=== PATIENT | male | born 1945 | race African-American/Black ===

== ENCOUNTER 2020-12-05 09:44 | Emergency (ER) | payer OTHER ==
[~2020-12-05] VITALS: Ht 182.9 cm; Wt 132.0 kg
[2020-12-05] MEDS ORDERED: LISINOPRIL-HCT1 EACH PO (10:00)
[2020-12-05 10:32] LABS: CALCIUM 9.9 mg/dL (8.5-10.1); CREATININE 1.3 mg/dL (0.6-1.3); POTASSIUM 3.5 mmol/L (3.5-5.1)
[2020-12-05 10:57] LABS: URINE BILIRUBIN NEGATIVE (Negative); URINE BLOOD 3+ (Negative); URINE CLARITY CLEAR; URINE COLOR YELLOW; URINE GLUCOSE-RANDOM NEGATIVE (Negative); URINE KETONES NEGATIVE (Negative); URINE LEUKOCYTES-REFLEX NEGATIVE (Negative); URINE NITRITE-REFLEX NEGATIVE (Negative); URINE PROTEIN TRACE (Negative); URINE UROBILINOGEN 0.2 E.U./dl (0.2-1.0)
[2020-12-05] MEDS ORDERED: LIPITOR 20 MG T20 M1 PO (10:57)
[2020-12-05] MEDS ORDERED: NORVASC5 MG PO (11:00)
[2020-12-05] MEDS ORDERED: CARVEDILOL12.5 MG PO (11:00)
[2020-12-05 11:03] LABS: CRYSTALS None Seen /LPF (None Seen); HYALINE CASTS 0-3 Few /LPF (None Seen); MUCUS 0-3 Light strn/LPF (None Seen); RBC CASTS 0-3 /LPF; SQUAMOUS 0-3 Few /LPF (0-3); URINE WBC-REFLEX 0-5 Rare /HPF (0-5); WBC CLUMPS Few (None Seen)
[2020-12-05] MEDS ORDERED: OLMESARTAN-HCT1 EAC1 PO (11:06)
[2020-12-05 12:14] VITALS: BP 142/94
== END 2020-12-05 12:15 | disposition home or self-care (01) ==
LOC: M.ERS 09:44
PROVIDERS: Emergency Medicine Emergency Medical Services
DX: R33.9 Retention of urine, unspecified (principal); I10 Essential (primary) hypertension; I25.2 Old myocardial infarction; Z79.899 Other long term (current) drug therapy

== ENCOUNTER 2020-12-11 06:53 | Emergency (ER) | payer OTHER ==
[~2020-12-11] VITALS: Ht 182.9 cm; Wt 118.4 kg
[~2020-12-11 06:53] MED LIST: CARVEDILOL12.5 MG PO; LIPITOR 20 MG T20 M1 PO; LISINOPRIL-HCT1 EACH PO; NORVASC5 MG PO; OLMESARTAN-HCT1 EAC1 PO
[2020-12-11 08:29] VITALS: BP 132/83
== END 2020-12-11 08:29 | disposition home or self-care (01) ==
LOC: M.ERS 06:53
DX: R33.9 Retention of urine, unspecified (principal); I10 Essential (primary) hypertension; I25.2 Old myocardial infarction; Z79.899 Other long term (current) drug therapy

== ENCOUNTER 2021-01-06 11:17 | Emergency (ER) | payer OTHER ==
[~2021-01-06] VITALS: Ht 182.9 cm; Wt 110.2 kg
[2021-01-06] MEDS ORDERED: FLOMAX0.4 MG PO (11:41)
[2021-01-06] MEDS ORDERED: TELMISARTAN-HC1 EAC2 PO (11:41)
[2021-01-06] MEDS ORDERED: PROSCAR 5MG TABL5 M1 PO (11:41)
[2021-01-06 12:52] LABS: URINE BILIRUBIN NEGATIVE (Negative); URINE BLOOD 3+ (Negative); URINE CLARITY CLEAR; URINE COLOR YELLOW; URINE GLUCOSE-RANDOM NEGATIVE (Negative); URINE KETONES TRACE (Negative); URINE PROTEIN 3+ (Negative); URINE SPECIFIC GRAVITY >= 1.030 (1.005-1.030); URINE UROBILINOGEN 0.2 E.U./dl (0.2-1.0)
[2021-01-06 12:59] LABS: URINE LEUKOCYTES-REFLEX 2+ (Negative); URINE NITRITE-REFLEX POSITIVE (Negative)
[2021-01-06] MEDS ORDERED: CEPHALEXIN500 MG PO (13:16)
[2021-01-06 13:25] VITALS: BP 152/80
== END 2021-01-06 13:25 | disposition home or self-care (01) ==
LOC: M.ERS 11:17
PROVIDERS: Nurse Practitioner Family
DX: T83.098A Other mechanical complication of other urinary catheter, initial encounter (principal); N39.0 Urinary tract infection, site not specified; I10 Essential (primary) hypertension; E78.00 Pure hypercholesterolemia, unspecified; Z86.73 Personal history of transient ischemic attack (TIA), and cerebral infarction without residual deficits; Y84.8 Other medical procedures as the cause of abnormal reaction of the patient, or of later complication, without mention of misadventure at the time of the procedure; Y92.89 Other specified places as the place of occurrence of the external cause